=== PATIENT | female | born 1960 | race Caucasian/White ===

== ENCOUNTER 2020-08-21 08:16 | Observation (INO) ==
--- NOTE | 2020-07-19 16:02 | PAT Medication Instructions ---
Medication Instructions Date of Service July 19, 2020 Home Medications acetaminophen [Tylenol Extra Strength] 1,000 mg PO Q6H PRN hydrochlorothiazide 25 mg PO QAM ibuprofen [Ibuprin] 400 mg PO Q6H PRN levothyroxine 100 mcg PO QAM losartan 100 mg PO QAM multivitamin 1 tab PO QPM naproxen sodium [Aleve] 220 mg PO Q12H PRN ASK your surgeon for instructions ibuprofen [Ibuprin] 400 mg PO Q6H PRN naproxen sodium [Aleve] 220 mg PO Q12H PRN DO NOT take the morning of surgery hydrochlorothiazide 25 mg PO QAM losartan 100 mg PO QAM Take morning of surgery With a small sip of water, OTHERWISE NOTHING TO EAT OR DRINK AFTER MIDNIGHT: acetaminophen [Tylenol Extra Strength] 1,000 mg PO Q6H PRN (if needed, may be taken up to four hours before surgery) levothyroxine 100 mcg PO QAM Take evening before surgery acetaminophen [Tylenol Extra Strength] 1,000 mg PO Q6H PRN (if needed) multivitamin 1 tab PO QPM Other Notes If you have any questions please call us at [phone] or [phone] or [phone] or [phone]
--- NOTE | 2020-07-22 12:14 | Anesthesiology Consultation ---
Date of Service July 22, 2020 Assessment & Plan (1) Encounter for pre-operative examination: COVID Status: As of 07/22 assessment, patient denies travel to endemic area, known exposure/sick contacts, or symptoms of COVID19. Patient instructed that they and their household members must follow strict social distancing guidelines, wear a mask in public and avoid travel for 14 days prior to surgery. Preoperative COVID19 testing to be completed prior to surgery per surgeon's arr angements. Patient made aware to self-isolate as much as possible between COVID testing and surgery. Chart Review Chart Review: Acceptable Risk for Surgery (pending surgeon-ordered PCP clearance) and Patient seen in Pre Admission Testing Teaching & Discussion Instructed NPO after midnight before surgery, except medications with 15 cc of water. Medication instructions provided according to the PAT guidelines. History Surgery Operation Date: 08/21/20 12:30 Proposed Procedures p Left Total Knee Arthroplasty - Isreal Thurman DO Height/Weight Height: 5 ft 2 in Weight: 122.7 kg Allergies Allergy/AdvReac Type Severity Reaction Status Date / Time Bactrim Allergy hives Verified 11/22/12 10:46 etodolac Allergy itchy hives Verified 07/04/20 12:27 latex Allergy itchy WITH Verified 07/04/20 12:27 GLOVES Sulfa (Sulfonamide Allergy rash Verified 07/04/20 12:27 Antibiotics) sulfamethoxazole Allergy hives Verified 07/04/20 12:27 trimethoprim Allergy hives Verified 07/04/20 12:27 morphine AdvReac Nausea Verified 07/22/20 12:29 Medications Home Medications Medication Instructions Recorded Confirmed Last Taken acetaminophen [Tylenol Extra 1,000 mg PO Q6H PRN 07/04/20 07/04/20 Unknown Strength] hydrochlorothiazide 25 mg PO QAM 07/04/20 07/04/20 Unknown ibuprofen [Ibuprin] 400 mg PO Q6H PRN 07/04/20 07/04/20 Unknown levothyroxine 100 mcg PO QAM 07/04/20 07/04/20 Unknown losartan 100 mg PO QAM 07/04/20 07/04/20 Unknown multivitamin 1 tab PO QPM 07/04/20 07/04/20 Unknown naproxen sodium [Aleve] 220 mg PO Q12H PRN 07/04/20 07/04/20 Unknown Past Medical History Medical History History of palpitations NOT FOR PAST 3 YRS-F/U PCP Hypertension Hypothyroidism Morbid obesity Osteoarthritis SOB (shortness of breath) on exertion "OUT OF SHAPE" Exercise / Class Metabolic Activity III < 4 Walking/Shop/Light housework (+SOB with 1 FOS, denies any chest pain, limited by knee pain) Past Family History Family History (Updated 07/04/20 @ 12:37 by Margarita Taylor RN) Mother Family history of reaction to anesthesia PONV Brother Family hx of colon cancer Past Surgical History Surgical History History of adenoidectomy History of colonoscopy History of tonsillectomy History of total knee replacement RIGHT Past Anesthesia History No Hx of Anesthesia Complications and No Family Hx of Anesthesia Complications History of PONV No Hx of PONV and Hx of Motion Sickness Social History Smoking Status: Never smoker Do You Dip or Chew Tobacco: No Hx Alcohol Use: No Hx Substance Use: No Review of Systems Pt denies any recent chest pain, shortness of breath, palpitations, cough, fever, URI. +Occ acid reflux, depends on diet Physical Exam Vital Signs BP: 136/83 P: 82bpm SPO2: 100% RA T: 98.3 F R: 12 Constitutional + obese ENMT Mouth: no dental restorations, no chipped teeth and no loose teeth Thyromental Distance: < 3.5 Finger Breadths (3) Mallampati Class: II Neck + short neck and + thick neck; neck extension not limited Respiratory normal respiratory effort, lungs clear to auscultation Cardiovascular RRR, no murmur, no edema Testing Laboratory Results 07/22/20 12:42 07/22/20 12:42 PT 11.0 Seconds (9.0-12.0) 07/22/20 12:42 INR 1.0 (0.9-1.1) 07/22/20 12:42 APTT 30.0 Seconds (21.0-31.0) 07/22/20 12:42 Hemoglobin A1c 5.6 % (4.5-5.6) 07/22/20 12:42 Urine Color Yellow 07/22/20 12:42 Urine Appearance Clear (Clear) 07/22/20 12:42 Urine pH 8.0 (4.5-7.5) H 07/22/20 12:42 Ur Specific [place] 1.012 (1.000-1.030) 07/22/20 12:42 Urine Protein Negative (Negative) 07/22/20 12:42 Urine Glucose (UA) Negative (Negative) 07/22/20 12:42 Urine Ketones Negative (Negative) 07/22/20 12:42 Urine Nitrite Negative (Negative) 07/22/20 12:42 Ur Leukocyte Esterase Trace (Negative) H 07/22/20 12:42 Urine WBC (Auto) 1-5 /hpf (0-5) 07/22/20 12:42 Urine RBC (Auto) 0-4 /hpf (0-4) 07/22/20 12:42 U Hyaline Cast (Auto) 0 /lpf (0-5) 07/22/20 12:42 U Epithel Cells (Auto) 5-10 /lpf (0-5) H 07/22/20 12:42 Urine Bacteria (Auto) Negative (Negative) 07/22/20 12:42 Blood Type A Positive 07/22/20 12:42 Antibody Screen NEGATIVE 07/22/20 12:42 Electrocardiogram Date: 07/22/20 Findings: + NSR @ (69bpm) Left axis deviation. Nonspecific ST abnormality. Compared to 2012 EKG, QRS axis shifted left. Chest X-Ray Date: 07/22/20 Findings: + NAD Echocardiogram Date: 05/19/17 EF: 67% Normal left ventricular wall thickness, contractility and chamber size. No segmental wall motion abnormalities. Mild diastolic dysfunction of the left ventricle. Right-sided chambers are normal with normal right ventricular function. Trace mitral and mild tricuspid regurgitation. Normal aortic and pulmonic valves.
[2020-07-22 13:22] LABS: Basophils # (auto) 0.05 K/uL (0-0.2); Basophils % (auto) 0.8 %; Eosinophils % (auto) 1.7 %; Hematocrit (blood only) 35.1 % (37-47); Hemoglobin 11.7 g/dL (12.0-16.0); Immature Granulocytes # (auto) 0.01 K/uL (0.00-0.02); Immature Granulocytes % (auto) 0.2 %; Lymphocytes % (auto) 24.8 %; Mean Corpuscular Hemoglobin 29.2 pg (25-34); Mean Corpuscular Hgb Conc 33.3 g/dL (32-36); Mean Corpuscular Volume 87.5 fL (80-100); Mean Platelet Volume 8.9 fL (7.4-10.4); Monocytes # (auto) 0.27 K/uL (0.11-0.59); Monocytes % (auto) 4.5 %; Neutrophils # (auto) 4.11 K/uL (1.4-6.5); Platelet Count 265 K/uL (130-400); RDW Coefficient of Variation 13.4 % (11.5-14.5); RDW Standard Deviation 42.9 fL (36.4-46.3); Red Blood Count 4.01 M/uL (4.2-5.4); White Blood Count 6.04 K/uL (4.8-10.8)
[2020-07-22 13:42] LABS: Partial Thromboplastin Ratio 1.1
--- NOTE | 2020-07-22 13:43 | XRay Report ---
XR chest Pre-admission PA/Lat HISTORY: Preop. COMPARISON: Chest 11/22/2012. FINDINGS: The lungs are clear. Cardiac silhouette is normal in size. No pleural effusions. No pneumot horax. IMPRESSION: No acute process. ACT 112: Negative or not required by law. Electronically signed by: Dakotah Tatum M.D. 07/22/2020 1:42 PM
[2020-07-22 13:45] LABS: Appearance Urine Clear (Clear); Bacteria Urine Automated Negative (Negative); Bilirubin Urine Negative (Negative); Blood Urine Negative (Negative); Cast Urine Automated 0 /lpf (0-5); Color Urine Yellow; Glucose Urine UA Negative (Negative); Ketones Urine Negative (Negative); Leukocyte Esterase Urine Trace (Negative); Nitrite Urine Negative (Negative); Protein Urine Negative (Negative); RBC Urine Automated 0-4 /hpf (0-4); Specific Gravity Urine 1.012 (1.000-1.030); Urobilinogen Urine Negative (Negative)
[2020-07-22 13:53] LABS: Estimated Average Glucose 114 mg/dl; Hemoglobin A1C 5.6 % (4.5-5.6)
[2020-07-22 14:05] LABS: Albumin Level 3.6 gm/dl (3.4-5.0); BUN Creatinine Ratio 16.6 (10-20); Calcium 9.1 mg/dl (8.5-10.1); Creatinine Clr Calc Pharmacy 78.2 ml/min; Est GFR (African American) 73.7; Est GFR (Non-African American) 63.6; Potassium 3.8 mmol/L (3.5-5.1)
--- NOTE | 2020-07-22 15:18 | Electrocardiogram Report ---
Test Reason : Blood Pressure : / mmHG Vent. Rate : 069 BPM Atrial Rate : 069 BPM P-R Int : 176 ms QRS Dur : 104 ms QT Int : 418 ms P-R-T Axes : 064 -33 -39 degrees QTc Int : 447 ms Normal sinus rhythm Left axis deviation Nonspecific ST abnormality Abnormal ECG When compared with ECG of 22-NOV-2012 11:07, QRS axis Shifted left Confirmed by Mohamud Robles ([id number]) on 07/22/2020 3:18:11 PM Referred By: Isreal Thurman Confirmed By:Howard Robles
--- NOTE | 2020-08-13 09:31 | History & Physical Report ---
Date of Service August 13, 2020 Procedure Date: 08/21/20 Procedure: Left Total Knee Arthroplasty Assessment & Plan (1) Arthritis of knee, left: Further care discussed with patient and at this point in time has failed conservative measures and would like to proceed with a Left total knee replacement. Plan on discharge will be home with home health physical therapy. DVT prophalaxis with TEDs, SCDs and will also place on aspirin 81 mg p.o. b.i.d. for a month postop. Patient will have follow up appointment in our office two weeks post op for staple/suture removal and re-evaluation. Patient otherwise has no other questions or concerns. History of Present Illness Chief Complaint: left knee pain Primary Care Provider: Jg Davis is a 60 year old female who complains of left knee pain, presents for pre- op evaluation prior to a left total knee replacement by dr Thurman at [facility]. she complains of pain, decreased range of motion, instability and stiffness in her left knee. Currently the patient states that the symptoms are moderate-severe. The pain is described as aching, sharp and throbbing. The symptoms occur continuously. The symptoms are aggravated by ascending stairs, daily activities, first steps while awake walking. she has been treated with previous cortisone and visco injections in the past without much relief. she has also had a prior right tka Allergies Allergy/AdvReac Type Severity Reaction Status Date / Time Bactrim Allergy hives Verified 11/22/12 10:46 etodolac Allergy itchy hives Verified 07/04/20 12:27 latex Allergy itchy WITH Verified 07/04/20 12:27 GLOVES Sulfa (Sulfonamide Allergy rash Verified 07/04/20 12:27 Antibiotics) sulfamethoxazole Allergy hives Verified 07/04/20 12:27 trimethoprim Allergy hives Verified 07/04/20 12:27 morphine AdvReac Nausea Verified 07/22/20 12:29 Home Medications Medication Instructions Recorded Confirmed Type acetaminophen [Tylenol Extra 1,000 mg PO Q6H PRN 07/04/20 07/04/20 History Strength] hydrochlorothiazide 25 mg PO QAM 07/04/20 07/04/20 History ibuprofen [Ibuprin] 400 mg PO Q6H PRN 07/04/20 07/04/20 History levothyroxine 100 mcg PO QAM 07/04/20 07/04/20 History losartan 100 mg PO QAM 07/04/20 07/04/20 History multivitamin 1 tab PO QPM 07/04/20 07/04/20 History naproxen sodium [Aleve] 220 mg PO Q12H PRN 07/04/20 07/04/20 History Past Med/Surg History Medical History History of palpitations NOT FOR PAST 3 YRS-F/U PCP Hypertension Hypothyroidism Morbid obesity Osteoarthritis SOB (shortness of breath) on exertion "OUT OF SHAPE" Surgical History History of adenoidectomy History of colonoscopy History of tonsillectomy History of total knee replacement RIGHT Family History Mother Family history of reaction to anesthesia PONV Brother Family hx of colon cancer Social History Smoking Status: Never smoker Second Hand Exposure: Yes (IN HER 20'S); Do You Dip or Chew Tobacco: No; Hx Alcohol Use: No Hx Substance Use: No Preferred Language: Telugu Communication Ability: Effective Ticketer Required: No Beliefs That Will Affect Care: None Current Living Situation: Spouse Other Information That Helps Us Care for You: No Feels Safe at Home: Yes Safety Concerns: Feels Safe At This Time Assistive Devices: Contacts and Glasses Assistive Devices Comment: WILL WEAR GLASSES Review of Systems Review of Systems: All systems reviewed & are unremarkable except as noted in HPI & below Constitutional: no fever, no chills and no sweats Respiratory: no cough and no dyspnea Cardiovascular: no chest pain, no dyspnea and no orthopnea Gastrointestinal: no abdominal pain, no nausea and no vomiting Musculoskeletal: as per Subjective / HPI Physical Exam Physical Exam: HT: 5ft 2in WT: 122.7kg Constitutional: WD/WN, vitals as above no acute distress Respiratory: normal respiratory effort, lungs clear to auscultation no respiratory distress, no labored breathing and does not use accessory muscles Cardiovascular: RRR, no murmur, no edema Gastrointestinal (Abdomen): normal bowel sounds, soft, nontender, no hepatosplenomegaly Musculoskeletal: Knee: + knee abnormal to inspection (Left knee- ), + effusion (+1 effusion), + limited ROM of knee (ROM 0/3/110), + knee ROM with crepitation, + joint line tenderness (medial joint line) and + Berenice's sign positive; no deformity, no skin erythema, no ecchymosis, no valgus laxity, no varus laxity, anterior drawer test negative, Brendan's sign negative and pivot shift test negative Results & Data Results & Data ([facility]) Laboratory Results Laboratory Results WBC 6.04 K/uL (4.8-10.8) 07/22/20 12:42 RBC 4.01 M/uL (4.2-5.4) L 07/22/20 12:42 Hgb 11.7 g/dL (12.0-16.0) L 07/22/20 12:42 Hct 35.1 % (37-47) L 07/22/20 12:42 MCV 87.5 fL (80-100) 07/22/20 12:42 MCH 29.2 pg (25-34) 07/22/20 12:42 MCHC 33.3 g/dL (32-36) 07/22/20 12:42 RDW Std Deviation 42.9 fL (36.4-46.3) 07/22/20 12:42 RDW Coeff of Shelia 13.4 % (11.5-14.5) 07/22/20 12:42 Plt Count 265 K/uL (130-400) 07/22/20 12:42 MPV 8.9 fL (7.4-10.4) 07/22/20 12:42 Immature Gran % (Auto) 0.2 % 07/22/20 12:42 Neut % (Auto) 68.0 % 07/22/20 12:42 Lymph % (Auto) 24.8 % 07/22/20 12:42 Tucker % (Auto) 4.5 % 07/22/20 12:42 Eos % (Auto) 1.7 % 07/22/20 12:42 Baso % (Auto) 0.8 % 07/22/20 12:42 Neut # (Auto) 4.11 K/uL (1.4-6.5) 07/22/20 12:42 Lymph # (Auto) 1.50 K/uL (1.2-3.4) 07/22/20 12:42 Tucker # (Auto) 0.27 K/uL (0.11-0.59) 07/22/20 12:42 Eos # (Auto) 0.10 K/uL (0-0.5) 07/22/20 12:42 Baso # (Auto) 0.05 K/uL (0-0.2) 07/22/20 12:42 Immature Gran # (Auto) 0.01 K/uL (0.00-0.02) 07/22/20 12:42 PT 11.0 Seconds (9.0-12.0) 07/22/20 12:42 INR 1.0 (0.9-1.1) 07/22/20 12:42 APTT 30.0 Seconds (21.0-31.0) 07/22/20 12:42 PTT Ratio 1.1 07/22/20 12:42 Sodium 139 mmol/L (136-145) 07/22/20 12:42 Potassium 3.8 mmol/L (3.5-5.1) 07/22/20 12:42 Chloride 105 mmol/L (98-107) 07/22/20 12:42 Carbon Dioxide 30 mmol/L (21-32) 07/22/20 12:42 Anion Gap 4.0 (3-11) 07/22/20 12:42 BUN 16 mg/dl (7-18) 07/22/20 12:42 Creatinine 0.98 mg/dl (0.6-1.2) 07/22/20 12:42 Est Cr Clr Drug Dosing 78.2 ml/min 07/22/20 12:42 Est GFR ( Amer) 73.7 07/22/20 12:42 Est GFR (Non-Af Amer) 63.6 07/22/20 12:42 BUN/Creatinine Ratio 16.6 (10-20) 07/22/20 12:42 Glucose 139 mg/dl (70-99) H 07/22/20 12:42 Estimat Average Glucose 114 mg/dl 07/22/20 12:42 Hemoglobin A1c 5.6 % (4.5-5.6) 07/22/20 12:42 Calcium 9.1 mg/dl (8.5-10.1) 07/22/20 12:42 Albumin 3.6 gm/dl (3.4-5.0) 07/22/20 12:42 Urine Color Yellow 07/22/20 12:42 Urine Appearance Clear (Clear) 07/22/20 12:42 Urine pH 8.0 (4.5-7.5) H 07/22/20 12:42 Ur Specific [place] 1.012 (1.000-1.030) 07/22/20 12:42 Urine Protein Negative (Negative) 07/22/20 12:42 Urine Glucose (UA) Negative (Negative) 07/22/20 12:42 Urine Ketones Negative (Negative) 07/22/20 12:42 Urine Blood Negative (Negative) 07/22/20 12:42 Urine Nitrite Negative (Negative) 07/22/20 12:42 Urine Bilirubin Negative (Negative) 07/22/20 12:42 Urine Urobilinogen Negative (Negative) 07/22/20 12:42 Ur Leukocyte Esterase Trace (Negative) H 07/22/20 12:42 Urine WBC (Auto) 1-5 /hpf (0-5) 07/22/20 12:42 Urine RBC (Auto) 0-4 /hpf (0-4) 07/22/20 12:42 U Hyaline Cast (Auto) 0 /lpf (0-5) 07/22/20 12:42 U Epithel Cells (Auto) 5-10 /lpf (0-5) H 07/22/20 12:42 Urine Bacteria (Auto) Negative (Negative) 07/22/20 12:42 Blood Type A Positive 07/22/20 12:42 Antibody Screen NEGATIVE 07/22/20 12:42 Diagnostic Findings Left Knee X-ray: left knee series confirms advanced degenerative changes to the left knee, greatest medial compartments and patellofemoral joint, showing joint space narrowing, osteophyte formation and subchondral sclerosis. no acute bony pathology noted.
[~2020-08-21 08:16] MED LIST: ACETAMINOPHEN 500 MG TAB PO SCH; BUPIVACAINE 0.5 % 5 MG/1 ML PF 10ML VIAL ONE; CeleBREX 200 MG CAP PO SCH; FAMOTIDINE 20 MG TAB PO SCH; GABAPENTIN 600 MG DOSE PO SCH; LR 500ML BOLUS, THEN 15ML/HR IV SCH; METOCLOPRAMIDE HCL 10 MG TABLET PO SCH; ROPIVACAINE 0.5% HCL/PF 150 MG, BUPIVACAINE 0.5% MPF 30 ML, EPINEPHrine 30MG/30ML (OR U... INSTIL SCH; TRANEXAMIC ACID 1,000 MG **IV Intra-op IV SCH; TRANEXAMIC ACID 1,000 MG **IV Pre-op IV SCH; dexAMETHasone 4 MG TAB PO SCH
--- NOTE | 2020-08-21 08:55 | History & Physical Bridge Note ---
Date of Service August 21, 2020 History & Physical Bridge Note I have examined the patient, reviewed the History & Physical and in the interval since the performance of the History & Physical I have noted the following changes of clinical significance: no changes noted
[2020-08-21] MEDS ORDERED: ONDANSETRON INJ 2 MG/ML 2 ML VIAL IV PRN ×2 (09:59→16:00)
[2020-08-21] MEDS ORDERED: ePHEDrine sulfate 50 MG/ML AMP IV PRN (09:59)
[2020-08-21] MEDS ORDERED: ATROPINE SULFATE 0.1 MG/ML 10ML SYR IV PRN (09:59)
[2020-08-21] MEDS ORDERED: fentaNYL citrate 100 MCG/2 ML VIAL IV PRN (09:59)
[2020-08-21] MEDS ORDERED: fentaNYL citrate 100 MCG/2 ML VIAL ONE (10:01)
[2020-08-21] MEDS ORDERED: MIDAZOLAM HCL 1 MG/ML 2ML VIAL ONE ×2 (10:01→11:36)
[2020-08-21] MEDS ORDERED: LIDOCAINE HCL 2% 2 ML VIAL/AMP(20MG/ML) INFIL ONE (11:29)
[2020-08-21] MEDS ORDERED: PROPOFOL IV EMULSION 10 MG/ML 20 ML VIAL IV ONE ×2 (11:29→13:24)
[2020-08-21] MEDS ORDERED: ONDANSETRON INJ 2 MG/ML 2 ML VIAL ONE (11:29)
[2020-08-21] MEDS ORDERED: BACITRACIN INJ 50,000 UNIT VIAL ONE (11:32)
[2020-08-21] MEDS ORDERED: ROPIVACAINE 0.5% HCL/PF 150 MG, BUPIVACAINE 0.5% MPF 30 ML, EPINEPHrine 0.15 MG, dexAME... INFIL SCH (12:00)
--- NOTE | 2020-08-21 13:13 | Operative Report ---
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 [place] Estimated Blood Loss 5 Findings Consistent with Post-Op Diagnosis Patient presents with severe end-stage tricompartmental degenerative joint disease varus alignment subchondral [id number] marginal osteophytes moderate to large effusion 5 degree flexion contracture Specimens Bone and cartilage Drains Medium bore Hemovac Anesthesia Type MAC Spinal Regional Complications none Disposition Accompanied Patient To Recovery: No Disposition: Recovery Room Indications Patient presents with severe end-stage tricompartmental degenerative joint disease no response to conservative management patient is varus alignment patient is failed times a corticosteroid injection Visco supplementation relative rest activity modification the above intraoperative findings are noted Description of Procedure After proper prepping and draping of the left lower extremity anterior midline incision was made over the region of the extensor extensor mechanism after meti culous hemostasis was obtained and maintained in subcutaneous tissues a medial parapatellar incision was made The patella was subluxed lateralward the medial lateral gutter were cleaned from any hypertrophic synovitis and scar tissue of the distal femoral block was placed and the distal femoral osteotomy cut was made subsequently the chamfers anterior and posterior osteotomy cuts were made utilizing the 4-in-1 block the tibia was subsequently subluxed anteriorward medial and ateral meniscal remnants were excised in their entirety remnants of the anterior and posterior cruciate ligaments were excised in their entirety excellent exposure of the proximal tibia was obtained the tibial osteotomy guide was placed on the proximal tibial osteotomy cut was made once again the knee was irrigated with copious amounts of sterile saline solution the patella was subsequently everted lateralward thickened scar tissue around the patella was removed the patella was subsequently cut utilizing a freehand technique and was drilled prepared for final preparation and placement of patella socially flexion-extension gaps were checked and the equal and symmetric trials were placed to the appropriate femoral and tibial trials with poly-spacer being placed for equal flexion and extension gaps and full range of motion including extension to 0 and flexion to 140 the trial components after having been taken to recovery range of motion was subsequently removed meticulous hemostasis was obtained and maintained subsequently a knee block injection of joint cocktail including ropivacaine 0.5% 150 mg. Bupivacaine 0.5% epinephrine 1-200,030 mL's toradol 30 mg dexamethasone 4 mg ketamine 10 mg clonidine 100 micrograms normal saline solution 30 mg was infiltrated into the soft tissues of the posterior kn ee medial lateral gutters and periosteal synovium special attention was paid to protect neurovascular structures at all times subsequently trial components having been removed the knee was irrigated with sterile saline solution. debris was removed the proximal tibia was subsequently prepared and was made ready for the placement of the tibial component tibial component was also cemented and tamped into position the femoral component was subsequently placed and cemented in the position the patellar component was subsequently cemented in position because hemostasis once again obtained and maintained wound having been thoroughly irrigated with debridement and debridement lavage was performed as well as a medial parapatellar incision closed with #1 Vicryl in interrupted fashion subcutaneous was closed with #2 Vicryl skin was closed with skin clips. PA-C was necessary for prepping and drapping as well as wound closure of deep fascia Sub cutaneous tissue and skin and was necessary for the case. A sterile compressive dressing was placed patient was taken to recovery in stable condition of report dictated by Olman I attest to the content of the Intraoperative Record and any orders documented therein. Any exceptions are noted below. I attest to the content of the Intraoperative Record and any orders documented therein. Any exceptions are noted below.
--- NOTE | 2020-08-21 14:26 | XRay Report ---
XR knee LT 1 or 2V routine HISTORY: 60 years-old Female Surgical Post Op left knee total joint arthroplasty. COMPARISON: None TECHNIQUE: 2 views of the left knee FINDINGS: Left knee total joint arthroplasty and patella resurfacing. Anterior midline skin naren are noted a long with expected postsurgical soft tissue swelling and deep tissue air with surgical drainage rich ter. No acute fracture or retained foreign body. IMPRESSION: Left knee total joint arthroplasty and patella resurfacing with expected postoperative ch anges. ACT 112: Negative or not required by law. The above report was generated using voice recognition software. It may contain grammatical, syntax o r spelling errors. Electronically signed by: Selwyn Newby M.D. 08/21/2020 2:25 PM
[2020-08-21] MEDS ORDERED: diphenhydrAMINE Capsule 25 MG CAP PO PRN (16:00)
[2020-08-21] MEDS ORDERED: MAGNESIUM HYDROXIDE SUSP 30 ML UDC PO PRN (16:00)
[2020-08-21] MEDS ORDERED: NALOXONE HCL 0.4 MG/1 ML VIAL/CARP IV PRN (16:00)
[2020-08-21] MEDS ORDERED: SODIUM CHLORIDE 0.9% 1000ML 1,000 ML IV SCH (16:00)
[2020-08-21] MEDS ORDERED: METOCLOPRAMIDE HCL INJ 5 MG/ML 2 ML VIAL IV PRN (16:00)
[2020-08-21] MEDS ORDERED: HYDROmorphone INJ 1 MG/ML SYRINGE IV PRN (16:00)
[2020-08-21] MEDS ORDERED: bisacodyL 10 MG SUPP PR PRN (16:00)
--- NOTE | 2020-08-21 16:11 | Anesthesiology Progress Note ---
Date of Service August 21, 2020 Anesthesia Post Procedure Vital Signs Vital Signs: Temp Pulse Pulse Resp BP Pulse Ox 08/21/20 16:08 37 C 79 16 122/77 96 08/21/20 15:15 83 16 101/80 97 08/21/20 15:00 80 13 105/67 96 08/21/20 14:45 74 13 116/71 94 08/21/20 14:40 75 15 120/67 96 08/21/20 14:30 36.4 C L 73 12 122/71 95 08/21/20 14:20 78 17 115/71 96 08/21/20 14:10 81 12 121/69 100 08/21/20 14:00 88 14 111/68 100 08/21/20 13:50 36.3 C L 88 19 114/62 99 08/21/20 09:30 36.7 C 100 H 18 118/83 99 Pain Intensity Left Knee: Pain Intensity: 0 Transfer of Care Handoff Completed per policy Notes Mental Status: alert / awake / arousable and participated in evaluation Patient Amnestic to Procedure: Yes Nausea / Vomiting: adequately controlled Pain: adequately controlled Airway Patency, RR, SpO2: stable & adequate BP & HR: stable & adequate Hydration State: stable & adequate Neuraxial Anesthesia: was administered and sensory block is resolving Anesthetic Complications: no major complications apparent and Pt Satisfied with anesthetic care
[2020-08-21] MEDS: ACETAMINOPHEN 500 MG TAB PO SCH ×2 (17:30→21:43)
[2020-08-21] MEDS: ceFAZolin 2000MG 2,000 MG/15 ML SYR IV SCH (19:42)
[2020-08-21] MEDS: ASPIRIN 81 MG ECTAB PO SCH (19:43)
[2020-08-21] MEDS: DOCUSATE SODIUM 100 MG CAP PO SCH (19:43)
[2020-08-21] MEDS: oxyCODONE HCL IR 5 MG TAB (IMMEDIATE RELEASE) PO PRN (19:43)
[2020-08-21] MEDS ORDERED: SENNA 8.6 MG TAB PO SCH (21:00)
[2020-08-22] MEDS: oxyCODONE HCL IR 5 MG TAB (IMMEDIATE RELEASE) PO PRN ×3 (01:43→15:52)
[2020-08-22] MEDS: ceFAZolin 2000MG 2,000 MG/15 ML SYR IV SCH (03:23)
[2020-08-22] MEDS: ACETAMINOPHEN 500 MG TAB PO SCH ×2 (05:06→10:34)
[2020-08-22 06:24] LABS: Hematocrit (blood only) 30.7 % (37-47); Hemoglobin 10.3 g/dL (12.0-16.0); Mean Corpuscular Hemoglobin 28.9 pg (25-34); Mean Corpuscular Hgb Conc 33.6 g/dL (32-36); Mean Platelet Volume 8.6 fL (7.4-10.4); Platelet Count 229 K/uL (130-400); RDW Coefficient of Variation 13.5 % (11.5-14.5); RDW Standard Deviation 42.3 fL (36.4-46.3); Red Blood Count 3.57 M/uL (4.2-5.4); White Blood Count 10.23 K/uL (4.8-10.8)
[2020-08-22] MEDS ORDERED: LEVOTHYROXINE SODIUM 100 MCG TABLET PO SCH (06:30)
[2020-08-22 06:59] LABS: BUN Creatinine Ratio 19.6 (10-20); Calcium 9.1 mg/dl (8.5-10.1); Creatinine Clr Calc Pharmacy 77.9 ml/min; Est GFR (African American) 73.7; Est GFR (Non-African American) 63.6; Potassium 3.4 mmol/L (3.5-5.1)
[2020-08-22] MEDS: ASPIRIN 81 MG ECTAB PO SCH (08:22)
[2020-08-22] MEDS: DOCUSATE SODIUM 100 MG CAP PO SCH (08:22)
[2020-08-22] MEDS ORDERED: LOSARTAN POTASSIUM 50 MG TAB PO SCH (09:00)
[2020-08-22] MEDS ORDERED: hydroCHLOROthiazide 25 MG TAB PO SCH (09:00)
[2020-08-22] MEDS ORDERED: MULTIVITAMIN TAB PO SCH (09:00)
[2020-08-22] MEDS ORDERED: POTASSIUM CHLORIDE CRTAB 20 MEQ TABCR PO STA (09:43)
--- NOTE | 2020-08-22 10:16 | Orthopedic Progress Note ---
Date of Service August 22, 2020 Assessment & Plan (1) Arthritis of knee, left: Postop day 1 status post left total knee arthroplasty PT/OT protocols. Weightbearing as tolerated. Was progressing well with her PT this morning. DVT prophylaxis-aspirin p.o. twice daily, SCDs, HARITHA cooley. Pain management as written. Mild hypokalemia-we will give 20 mEq of potassium orally today. History of hydrochlorothiazide use. Plan for a recheck of her BMP and CBC early next week. DC planning-patient is planning for discharge to home with outpatient PT. With her current state of mild lightheadedness, we will continue to plan on ambulating her today. If she is feeling comfortable and she remained stable, we will plan for discharge to home. Admission and Anticipated Discharge Date Admission Date: August 21, 2020 Subjective Postop day 1 Patient sitting at the edge of the bed with her walker. She has just completed her physical therapy. Complains of some pain around the drain site itself. She states the knee feels good. She states that she ambulated around the hallways. She needs to work on steps. Shortly after my visit I was asked to check on her again. She had gotten up to walk to the doorway and then turned around. At that point she felt very lightheaded and sat back down at the bed. Nursing has checked her vital signs and they are all stable. She denies any chest pain, shortness of breath. Lightheadedness has essentially resolved. She has concerns about going home at this point in time. She has no other complaints. Physical Exam Physical Exam: Dressings are clean, dry, and intact. Calves are soft and nontender. Neurovascular is intact. Toes are mobile. Hemovac drainage was 50 mL from the previous shift. Results & Data ([facility]) Vital Signs (Past 12 Hours) Vital Signs Temp Pulse Pulse Resp BP Pulse Ox 08/22/20 10:07 70 16 121/75 97 08/22/20 07:35 36.9 C 62 18 117/73 97 08/22/20 03:15 36.9 C 67 16 103/69 97 08/21/20 22:51 37.0 C 59 L 16 108/66 95 Laboratory Results Laboratory Results WBC 10.23 K/uL (4.8-10.8) 08/22/20 06:01 RBC 3.57 M/uL (4.2-5.4) L 08/22/20 06:01 Hgb 10.3 g/dL (12.0-16.0) L 08/22/20 06:01 Hct 30.7 % (37-47) L 08/22/20 06:01 MCV 86.0 fL (80-100) 08/22/20 06:01 MCH 28.9 pg (25-34) 08/22/20 06:01 MCHC 33.6 g/dL (32-36) 08/22/20 06:01 RDW Std Deviation 42.3 fL (36.4-46.3) 08/22/20 06:01 RDW Coeff of Shelia 13.5 % (11.5-14.5) 08/22/20 06:01 Plt Count 229 K/uL (130-400) 08/22/20 06:01 MPV 8.6 fL (7.4-10.4) 08/22/20 06:01 Immature Gran % (Auto) 0.2 % 07/22/20 12:42 Neut % (Auto) 68.0 % 07/22/20 12:42 Lymph % (Auto) 24.8 % 07/22/20 12:42 [place] % (Auto) 4.5 % 07/22/20 12:42 Eos % (Auto) 1.7 % 07/22/20 12:42 Baso % (Auto) 0.8 % 07/22/20 12:42 Neut # (Auto) 4.11 K/uL (1.4-6.5) 07/22/20 12:42 Lymph # (Auto) 1.50 K/uL (1.2-3.4) 07/22/20 12:42 [place] # (Auto) 0.27 K/uL (0.11-0.59) 07/22/20 12:42 Eos # (Auto) 0.10 K/uL (0-0.5) 07/22/20 12:42 Baso # (Auto) 0.05 K/uL (0-0.2) 07/22/20 12:42 Immature Gran # (Auto) 0.01 K/uL (0.00-0.02) 07/22/20 12:42 PT 11.0 Seconds (9.0-12.0) 07/22/20 12:42 INR 1.0 (0.9-1.1) 07/22/20 12:42 APTT 30.0 Seconds (21.0-31.0) 07/22/20 12:42 PTT Ratio 1.1 07/22/20 12:42 Sodium 139 mmol/L (136-145) 08/22/20 06:01 Potassium 3.4 mmol/L (3.5-5.1) L 08/22/20 06:01 Chloride 105 mmol/L (98-107) 08/22/20 06:01 Carbon Dioxide 27 mmol/L (21-32) 08/22/20 06:01 Anion Gap 7.0 (3-11) 08/22/20 06:01 BUN 19 mg/dl (7-18) H 08/22/20 06:01 Creatinine 0.98 mg/dl (0.6-1.2) 08/22/20 06:01 Est Cr Clr Drug Dosing 77.9 ml/min 08/22/20 06:01 Est GFR ( Amer) 73.7 08/22/20 06:01 Est GFR (Non-Af Amer) 63.6 08/22/20 06:01 BUN/Creatinine Ratio 19.6 (10-20) 08/22/20 06:01 Glucose 131 mg/dl (70-99) H 08/22/20 06:01 Estimat Average Glucose 114 mg/dl 07/22/20 12:42 Hemoglobin A1c 5.6 % (4.5-5.6) 07/22/20 12:42 Calcium 9.1 mg/dl (8.5-10.1) 08/22/20 06:01 Albumin 3.6 gm/dl (3.4-5.0) 07/22/20 12:42 Urine Color Yellow 07/22/20 12:42 Urine Appearance Clear (Clear) 07/22/20 12:42 Urine pH 8.0 (4.5-7.5) H 07/22/20 12:42 Ur Specific [place] 1.012 (1.000-1.030) 07/22/20 12:42 Urine Protein Negative (Negative) 07/22/20 12:42 Urine Glucose (UA) Negative (Negative) 07/22/20 12:42 Urine Ketones Negative (Negative) 07/22/20 12:42 Urine Blood Negative (Negative) 07/22/20 12:42 Urine Nitrite Negative (Negative) 07/22/20 12:42 Urine Bilirubin Negative (Negative) 07/22/20 12:42 Urine Urobilinogen Negative (Negative) 07/22/20 12:42 Ur Leukocyte Esterase Trace (Negative) H 07/22/20 12:42 Urine WBC (Auto) 1-5 /hpf (0-5) 07/22/20 12:42 Urine RBC (Auto) 0-4 /hpf (0-4) 07/22/20 12:42 U Hyaline Cast (Auto) 0 /lpf (0-5) 07/22/20 12:42 U Epithel Cells (Auto) 5-10 /lpf (0-5) H 07/22/20 12:42 Urine Bacteria (Auto) Negative (Negative) 07/22/20 12:42 Blood Type A Positive 07/22/20 12:42 Antibody Screen NEGATIVE 07/22/20 12:42
--- NOTE | 2020-08-23 09:22 | Discharge Summary ---
Date of Service date of discharge: August 22, 2020 date of admission: 08/21/20 Admission HPI Per Admitting Provider Susan is a 60 year old female who complains of left knee pain, presents for pre- op evaluation prior to a left total knee replacement by dr Thurman at [facility]. she complains of pain, decreased range of motion, instability and stiffness in her left knee. Currently the patient states that the symptoms are moderate-severe. The pain is described as aching, sharp and throbbing. The symptoms occur continuously. The symptoms are aggravated by ascending stairs, daily activities, first steps while awake walking. she has been treated with previous cortisone and visco injections in the past without much relief. she has also had a prior right tka Principal Diagnosis left knee arthritis Discharge Exam Vital Signs Temp 36.9 C 08/22/20 15:10 Pulse 62 08/22/20 15:10 Resp 16 08/22/20 15:10 BP 121/75 08/22/20 15:10 Pulse Ox 97 08/22/20 15:10 Intake & Output 08/22/20 08/23/20 08/23/20 18:59 06:59 18:59 Output Total 100 / 100 Balance -100 / -100 Weight 122 kg Output: Drain Output 100 / 100 Left Knee Hemovac 100 / 100 Constitutional WD/WN, vitals as above no acute distress Musculoskeletal Left Knee- NVDI, calf SNT, negative frank sign. DP palpable, able to wiggle toes/ankle movement without difficulty. DIANE dressing clean dry and intact. expected post-operative bruising noted. Discharge Data Allergies Allergy/AdvReac Type Severity Reaction Status Date / Time Bactrim Allergy hives Verified 11/22/12 10:46 etodolac Allergy itchy hives Verified 08/21/20 10:31 latex Allergy itchy WITH Verified 08/21/20 10:31 GLOVES Sulfa (Sulfonamide Allergy rash Verified 08/21/20 10:31 Antibiotics) sulfamethoxazole Allergy hives Verified 08/21/20 10:31 trimethoprim Allergy hives Verified 08/21/20 10:31 morphine AdvReac Nausea Verified 08/21/20 10:31 Consultations 08/21/20 16:00 Consult Case Management - Discharge Planning Routine Procedures Performed Operation Date: 08/21/20 09:45 Actual Procedures p Left Total Knee Arthroplasty(Left) - Isreal Thurman DO Ordered Studies 08/21/20 05:00 US - OR guided needle placemen Routine Hospital Course (1) Arthritis of knee, left: Postop day 1 status post left total knee arthroplasty PT/OT protocols. Weightbearing as tolerated. Was progressing well with her PT this morning. DVT prophylaxis-aspirin p.o. twice daily, SCDs, HARITHA cooley. Pain management as written. Mild hypokalemia-we will give 20 mEq of potassium orally today. History of hydrochlorothiazide use. Plan for a recheck of her BMP and CBC early next week. Laboratory Results WBC 10.23 K/uL (4.8-10.8) 08/22/20 06:01 RBC 3.57 M/uL (4.2-5.4) L 08/22/20 06:01 Hgb 10.3 g/dL (12.0-16.0) L 08/22/20 06:01 Hct 30.7 % (37-47) L 08/22/20 06:01 MCV 86.0 fL (80-100) 08/22/20 06:01 MCH 28.9 pg (25-34) 08/22/20 06:01 MCHC 33.6 g/dL (32-36) 08/22/20 06:01 RDW Std Deviation 42.3 fL (36.4-46.3) 08/22/20 06:01 RDW Coeff of Shelia 13.5 % (11.5-14.5) 08/22/20 06:01 Plt Count 229 K/uL (130-400) 08/22/20 06:01 MPV 8.6 fL (7.4-10.4) 08/22/20 06:01 Immature Gran % (Auto) 0.2 % 07/22/20 12:42 Neut % (Auto) 68.0 % 07/22/20 12:42 Lymph % (Auto) 24.8 % 07/22/20 12:42 [place] % (Auto) 4.5 % 07/22/20 12:42 Eos % (Auto) 1.7 % 07/22/20 12:42 Baso % (Auto) 0.8 % 07/22/20 12:42 Neut # (Auto) 4.11 K/uL (1.4-6.5) 07/22/20 12:42 Lymph # (Auto) 1.50 K/uL (1.2-3.4) 07/22/20 12:42 [place] # (Auto) 0.27 K/uL (0.11-0.59) 07/22/20 12:42 Eos # (Auto) 0.10 K/uL (0-0.5) 07/22/20 12:42 Baso # (Auto) 0.05 K/uL (0-0.2) 07/22/20 12:42 Immature Gran # (Auto) 0.01 K/uL (0.00-0.02) 07/22/20 12:42 PT 11.0 Seconds (9.0-12.0) 07/22/20 12:42 INR 1.0 (0.9-1.1) 07/22/20 12:42 APTT 30.0 Seconds (21.0-31.0) 07/22/20 12:42 PTT Ratio 1.1 07/22/20 12:42 Sodium 139 mmol/L (136-145) 08/22/20 06:01 Potassium 3.4 mmol/L (3.5-5.1) L 08/22/20 06:01 Chloride 105 mmol/L (98-107) 08/22/20 06:01 Carbon Dioxide 27 mmol/L (21-32) 08/22/20 06:01 Anion Gap 7.0 (3-11) 08/22/20 06:01 BUN 19 mg/dl (7-18) H 08/22/20 06:01 Creatinine 0.98 mg/dl (0.6-1.2) 08/22/20 06:01 Est Cr Clr Drug Dosing 77.9 ml/min 08/22/20 06:01 Est GFR ( Amer) 73.7 08/22/20 06:01 Est GFR (Non-Af Amer) 63.6 08/22/20 06:01 BUN/Creatinine Ratio 19.6 (10-20) 08/22/20 06:01 Glucose 131 mg/dl (70-99) H 08/22/20 06:01 Estimat Average Glucose 114 mg/dl 07/22/20 12:42 Hemoglobin A1c 5.6 % (4.5-5.6) 07/22/20 12:42 Calcium 9.1 mg/dl (8.5-10.1) 08/22/20 06:01 Albumin 3.6 gm/dl (3.4-5.0) 07/22/20 12:42 Urine Color Yellow 07/22/20 12:42 Urine Appearance Clear (Clear) 07/22/20 12:42 Urine pH 8.0 (4.5-7.5) H 07/22/20 12:42 Ur Specific [place] 1.012 (1.000-1.030) 07/22/20 12:42 Urine Protein Negative (Negative) 07/22/20 12:42 Urine Glucose (UA) Negative (Negative) 07/22/20 12:42 Urine Ketones Negative (Negative) 07/22/20 12:42 Urine Blood Negative (Negative) 07/22/20 12:42 Urine Nitrite Negative (Negative) 07/22/20 12:42 Urine Bilirubin Negative (Negative) 07/22/20 12:42 Urine Urobilinogen Negative (Negative) 07/22/20 12:42 Ur Leukocyte Esterase Trace (Negative) H 07/22/20 12:42 Urine WBC (Auto) 1-5 /hpf (0-5) 07/22/20 12:42 Urine RBC (Auto) 0-4 /hpf (0-4) 07/22/20 12:42 U Hyaline Cast (Auto) 0 /lpf (0-5) 07/22/20 12:42 U Epithel Cells (Auto) 5-10 /lpf (0-5) H 07/22/20 12:42 Urine Bacteria (Auto) Negative (Negative) 07/22/20 12:42 Blood Type A Positive 07/22/20 12:42 Antibody Screen NEGATIVE 07/22/20 12:42 Total Time Total Time Spent Total Time Spent (In Minutes): 20 Total Time Includes: Examination of the Patient, Discharge Planning and Medication Reconciliation Discharge Plan Discharge Items Patient Disposition: Home - Self-Care Reason For Visit: Osteoarthritis, Left Knee Discharge Diagnosis: Osteoarthritis left knee Activity: Per Instructions section Weightbearing: Left weightbearing Weightbearing Comment: As tolerated with walker Non-emergency contact: Surgeon Call non-emergency contact if: your pain is not controlled, your temperature is above 101.5, your wound has increased redness and your wound has increased drainage Follow-up/Referrals: Jg Reed [Primary Care Provider] - Diet: Regular Ambulatory Orders: Complete Blood Count no Diff (Timed) Timeframe: 20200826 Location: Determined by Patient Ordered By: Tray Soto Basic Metabolic Panel (Routine) Timeframe: 20200826 Location: Determined by Patient Ordered By: Tray James Attending Provider Instructions: ACTIVITY RECOMMENDATIONS: SELF CARE INSTRUCTIONS AFTER TOTAL KNEE REPLACEMENT A. You may need to continue a physical therapy program after discharge from the hospital. There are several options available to you. Your doctor will assist you in selecting the best one for you. 1. An out-patient facility 2 to 3 times a week for therapy or home therapy. 2. Continue working on all exercises taught to you in the hospital. Your goals should be to increase bending of your knee to 90 degrees and beyond and to fully straighten your knee. B. You may progress at your own pace from walking with a walker or crutches to a cane; then to no assistive devices. C. Make walking a part of your daily routine. Be up as much as comfortable with rest periods throughout the day. Rest with leg elevation is very important. Use the ice wrap frequently for the first 3-4 weeks. D. There are no restrictions on activities. You may ride in a car, shop, participate in cell geneticist and all social activities. E. Wear the long elastic stockings (HARITHA hose) 20 hours a day for 2 weeks after surgery. They can be removed several times a day for laundering and for a bath. F. You may shower, no tub baths until cleared by your doctor. SPECIAL CARE INSTRUCTIONS: VERY IMPORTANT TO READ AND REVIEW A. There are a few signs you need to watch for after you are home. Call [facility] if you notice any of the followin. Increased severe knee pain. Some pain is expected especially when you exercise. 2. Increased swelling in your leg or knee; pain or swelling of the calf muscle in either lower leg. 3. Any fluid drainage from the incision. 4. Shortness of breath or chest pain. B. Please call [facility] at if you have any concerns or questions about your operation or recovery. The doctor or his nurse will return your call promptly. C. You must take antibiotics before dental work, bladder, bowel or other surgery. Your doctor will provide you with a permanent care to carry describing this precaution. IMPORTANT: * REMEMBER TO TAKE ASPIRIN, 81 MG, TWICE DAILY FOR 4 WEEKS UNLESS OTHERWISE DIRECTED. THIS IS YOUR BLOOD THINNER. * HIGH RISK PATIENTS MAY BE PRESCRIBED A STRONGER BLOOD THINNER. THIS WILL BE PROVIDED AT DISCHARGE. * CALL IF INCREASED PAIN, REDNESS, DRAINAGE OR FEVER GREATER THAT 101. * WEAR HARITHA HOSE 20 HOURS PER DAY FOR 2 WEEKS. * DIANE Dressing- This is a large suction dressing covering your incision. This will help pull any excess drainage from the wound and allow your incision to heal properly. You may shower with this if you can keep the unit outside of the shower. If any bleeding or leakage is noted please call your doctor's office. This will remain on your incision for 7 days and then should be removed. This can be done yourself or by the home nursing staff if applicable. The entire unit is disposable once removed. Once removed, keep incision clean and dry. If redness or drainage is noted, please call your surgeon. FOLLOW UP VISIT: If appointment is not already scheduled: Please call [facility] to make a follow-up appointment for 2 weeks after your surgery at . Stand-Alone Forms: [facility] Medications and DC Order Prescriptions: New aspirin 81 mg Tablet,Delayed Release (Dr/Ec) 81 mg PO BID 30 Days Qty: 60 RF: 0 acetaminophen 500 mg Tablet 1,000 mg PO Q8 14 Days Qty: 84 RF: 0 cefadroxil 500 mg capsule 500 mg PO BID Qty: 14 RF: 0 polyethylene glycol 3350 [Miralax] 17 gram powder in packet 17 g PO DAILY PRN (Reason: constipation) Qty: 5 RF: 0 oxycodone 5 mg Tablet 5 - 10 mg PO Q4H MDD 6 PRN (Reason: pain) Qty: 30 RF: 0 Continued multivitamin Tablet 1 tab PO QPM RF: 0 hydrochlorothiazide 25 mg Tablet 25 mg PO QAM RF: 0 losartan 100 mg Tablet 100 mg PO QAM RF: 0 levothyroxine 100 mcg Capsule 100 mcg PO QAM RF: 0 Discontinued ibuprofen [Ibuprin] 200 mg Tablet 400 mg PO Q6H PRN (Reason: Pain) RF: 0 acetaminophen [Tylenol Extra Strength] 500 mg Capsule 1,000 mg PO Q6H PRN (Reason: Pain) RF: 0 naproxen sodium [Aleve] 220 mg Capsule 220 mg PO Q12H PRN (Reason: Pain) RF: 0 Discharge Orders: Discharge Order (Routine); Ordered 08/22/20 Ordered By: Tray Manzanares/Other Patient Handouts: Total Knee Replacement, Cefadroxil tablets or capsules, Oxycodone tablets or capsules Admission Data Admit Date/Time: 08/21/20 13:57 Attending Provider: Isreal Thurman Admit Provider: Isreal Thurman Primary Care Provider: Jg Reed Other Interventions: Discharge Summary Assessment (RN) Last Done: 08/22/20 15:10
== END 2020-08-22 16:31 | disposition home or self-care (01) ==
LOC: 3E 08:16 → ASU 08:16